=== PATIENT | male | born 1965 | race Native Hawaiian/Other Pacific Islander ===

== ENCOUNTER 2020-02-17 16:17 | Emergency (ER) | payer OTHER ==
[2020-02-17] MEDS ORDERED: ACETAMINOPHEN 325 MG TABLET PO STA (17:10)
--- NOTE | 2020-02-17 17:11 | ED Physician Documentation ---
History of Present Illness - Stated complaint Stated Complaint: Chest pain - Chief complaint Chief Complaint: Abd Pain - History obtained from History obtained from: Patient, Family - History of Present Illness Timing: How many days ago (2) Pain level max: 5 Pain level now: 4 - Additonal information Additional information: 54-year-old male presents the emergency department with a dry cough for the past 2 days. States that he has right-sided chest pain with coughing. Worse with movement, worse with coughing. Better with rest. Has not taken anything for pain. No nausea. No vomiting. No diarrhea. No fevers. History of a right- sided CVA. Review of Systems Ten Systems: 10 systems reviewed and negative Constitutional: denies: Fever, Chills Ears: denies: Ear pain Cardiac: denies: Palpitations Respiratory: denies: Dyspnea, Hemoptysis, Wheezing GI: denies: Abdominal Pain, Nausea, Vomiting, Diarrhea, Hematemesis, Bloody / black stool : denies: Dysuria, Frequency, Hesitancy Skin: denies: Rash Musculoskeletal: denies: Neck pain, Back pain Neurologic: denies: Headache PD PAST MEDICAL HISTORY - Past Medical History Past Medical History: Yes Cardiovascular: Hypertension Neuro: CVA - Allergies Allergies/Adverse Reactions: Allergies Allergy/AdvReac Type Severity Reaction Status Date / Time No Known Drug Allergies Allergy Verified 02/17/20 16:27 - Living Situation Living Situation: reports: With family Living Arrangement: reports: At home - Social History Does the pt have substance abuse?: No - Family History Family history: reports: Non contributory PD ED PE NORMAL - Vitals Vital signs reviewed: Yes - General General: Alert and oriented X 3, No acute distress, Well developed/nourished - HEENT HEENT: PERRL, Moist mucous membranes - Neck Neck: Supple, no meningeal sign - Cardiac Cardiac: RRR, Strong equal pulses - Respiratory Respiratory: No respiratory distress, Clear bilaterally - Abdomen Abdomen: Normal bowel sounds, Soft, Non tender, Non distended - Back Back: No CVA TTP, No spinal TTP - Derm Derm: Warm and dry - Extremities Extremities: No edema, No calf tenderness / cord - Neuro Neuro: Alert and oriented X 3 - Psych Psych: Normal mood, Normal affect - Free text exam Free text exam: Tender to palpation right anterior chest wall that reproduces his pain Results - Vitals Vitals: Vital Signs - 24 hr 02/17/20 02/17/20 02/17/20 16:27 18:31 20:00 Temperature 36.8 C Heart Rate 98 99 99 Respiratory 16 27 H 23 Rate Blood Pressure 165/98 H 166/105 H 162/108 H O2 Saturation 98 98 99 02/17/20 21:30 Temperature Heart Rate 102 H Respiratory 18 Rate Blood Pressure 139/84 H O2 Saturation 100 Oxygen O2 Source Room air - EKG (time done) 1637 Rate: Rate (enter#) (96) Rhythm: NSR [place]: Normal Intervals: Normal ME QRS: Normal Ischemia: Normal ST segments - Labs Labs: Laboratory Tests 02/17/20 02/17/20 02/17/20 18:38 18:38 18:38 WBC 18.9 H RBC 5.22 Hgb 16.1 Hct 45.9 MCV 87.9 MCH 30.8 MCHC 35.1 RDW 12.0 Plt Count 285 MPV 9.5 Neut # (Auto) Not Reportable Lymph # (Auto) Not Reportable Dundy # (Auto) Not Reportable Eos # (Auto) Not Reportable Baso # (Auto) Not Reportable Absolute Nucleated RBC Not Reportable Total Counted 100 Band Neuts % (Manual) 0 Abnorm Lymph % (Manual) 0 Nucleated RBC % Not Reportable Neutrophils # (Manual) 14.6 H Lymphocytes # (Manual) 2.3 Monocytes # (Manual) 2.1 H Eosinophils # (Manual) 0.0 Basophils # (Manual) 0.0 Differential Comment MANUAL DIFFERENTIAL Platelet Estimate NORMAL (130-450,000) Platelet Morphology RARE GIANT PLATELETS RBC Morph Micro Appear NORMAL APPEARANCE Sodium 134 L Potassium 3.4 L Chloride 102 Carbon Dioxide 21 Anion Gap 11.0 BUN 17 Creatinine 0.6 Estimated GFR (MDRD) 140 Glucose 119 H Calcium 8.9 Total Bilirubin 5.4 H AST 313 H ALT 473 H Alkaline Phosphatase 152 H Troponin I High Sens 10.0 Total Protein 8.2 Albumin 4.2 Globulin 4.0 Albumin/Globulin Ratio 1.1 Lipase 39 Urine Color Urine Clarity Urine pH Ur Specific Lyndon Urine Protein Urine Glucose (UA) Urine Ketones Urine Occult Blood Urine Nitrite Urine Bilirubin Urine Urobilinogen Ur Leukocyte Esterase Urine RBC Urine WBC Ur Squamous Epith Cells Urine Crystals Amorphous Sediment Urine Bacteria Urine Yeast Ur Microscopic Review Urine Culture Comments 02/17/20 19:15 WBC RBC Hgb Hct MCV MCH MCHC RDW Plt Count MPV Neut # (Auto) Lymph # (Auto) Dundy # (Auto) Eos # (Auto) Baso # (Auto) Absolute Nucleated RBC Total Counted Band Neuts % (Manual) Abnorm Lymph % (Manual) Nucleated RBC % Neutrophils # (Manual) Lymphocytes # (Manual) Monocytes # (Manual) Eosinophils # (Manual) Basophils # (Manual) Differential Comment Platelet Estimate Platelet Morphology RBC Morph Micro Appear Sodium Potassium Chloride Carbon Dioxide Anion Gap BUN Creatinine Estimated GFR (MDRD) Glucose Calcium Total Bilirubin AST ALT Alkaline Phosphatase Troponin I High Sens Total Protein Albumin Globulin Albumin/Globulin Ratio Lipase Urine Color DARK YELLOW Urine Clarity HAZY Urine pH 6.0 Ur Specific Lyndon >=1.030 H Urine Protein >=300 H Urine Glucose (UA) NEGATIVE Urine Ketones NEGATIVE Urine Occult Blood LARGE H Urine Nitrite NEGATIVE Urine Bilirubin MODERATE H Urine Urobilinogen 1 (NORMAL) Ur Leukocyte Esterase NEGATIVE Urine RBC 11-25 H Urine WBC 0-3 Ur Squamous Epith Cells NONE SEEN Urine Crystals 0-2 Calcium Oxalate Amorphous Sediment Few Urine Bacteria Moderate H Urine Yeast PRESENT Ur Microscopic Review INDICATED Urine Culture Comments INDICATED - Rads (name of study) RUQ US Radiology: Prelim report reviewed, EMP read contemporaneously, See rad report (1. Cholelithiasis with gallstone and echogenic material with septation. No gallbladder wall thickening, pericholecystic fluid collection or sonographic Gomez sign. 2. Intrahepatic Limited examination with common bile duct measuring 8 mm. Please correlate with serum bilirubin for biliary obstruction) CT abd/pelvis Radiology: Prelim report reviewed, EMP read contemporaneously, See rad report PD MEDICAL DECISION MAKING - ED course Complexity details: reviewed results, re-evaluated patient, considered differential, d/w patient, d/w family ED course: 54-year-old male with right upper quadrant pain, appears to have choledocholithiasis likely on ultrasound. No stone is visible, but there is common bile duct dilatation to 8 mm along with elevation of his bilirubin, ALT, AST and alk phos. CT scan was also ordered. Read is not back at this time. Patient was given Zosyn. Patient will need transfer for GI. [facility] contacted. [facility]. This document was made in part using voice recognition software. While efforts are made to proofread this document, sound alike and grammatical errors may occur. Departure - Departure Disposition: 02 Transfer Acute Care Hosp Clinical Impression: Choledocholithiasis Condition: Stable
--- NOTE | 2020-02-17 17:18 | XRAY Report ---
PROCEDURE: Chest 1 View X-Ray INDICATIONS: Chest pain TECHNIQUE: One view of the chest was acquired. COMPARISON: None. FINDINGS: Surgical changes and devices: None. Lungs and pleura: No pleural effusions or pneumothorax. Lungs are clear. Mediastinum: Mediastinal contours appear normal. Heart size is normal. Bones and chest wall: No suspicious bony lesions. Overlying soft tissues appear unremarkable. IMPRESSION: Mild interstitial prominence. No acute cardiopulmonary disease. Reviewed by: Brooke Pineda MD on 02/17/2020 5:17 PM PDT Approved by: Brooke Pineda MD on 02/17/2020 5:17 PM PDT Station ID: [id number]
[2020-02-17 18:44] LABS: BASOPHILS % (AUTO) 0.3 %; EOSINOPHILS % (AUTO) 0.1 %; HGB - HEMOGLOBIN 16.1 g/dL (14.0-18.0); LYMPHOCYTES % (AUTO) 7.7 %; MEAN CORPUSCULAR HEMOGLOBIN 30.8 pg (27.0-31.0); MEAN CORPUSCULAR HGB CONC 35.1 g/dL (32.0-36.0); MEAN CORPUSCULAR VOLUME 87.9 fL (80.0-94.0); MEAN PLATELET VOLUME 9.5 fL (7.4-11.4); MONOCYTES % (AUTO) 9.6 %; NEUTROPHILS % (AUTO) 81.6 %; PLT - PLATELET COUNT 285 10^3/uL (130-450); RED BLOOD COUNT 5.22 10^6/uL (4.70-6.10); WHITE BLOOD COUNT 18.9 x10^3/uL (4.8-10.8)
[2020-02-17 18:47] LABS: ABNORMAL LYMPHS % (MANUAL) 0 %; BAND NEUTROPHILS % (MANUAL) 0 %
[2020-02-17 19:07] LABS: ALBUMIN 4.2 g/dL (3.2-5.5); ALBUMIN/GLOBULIN RATIO 1.1 (1.0-2.2); BILIRUBIN,TOTAL 5.4 mg/dL (0.2-1.0); CALCIUM 8.9 mg/dL (8.5-10.3); CREATININE 0.6 mg/dL (0.6-1.2); TOTAL PROTEIN 8.2 g/dL (6.7-8.2)
[2020-02-17 19:27] LABS: GLUCOSE, URINE (UA) NEGATIVE (NEGATIVE); KETONES,URINE (UA) NEGATIVE (NEGATIVE); LEUKOCYTE ESTERASE, URINE NEGATIVE (NEGATIVE); NITRITE,URINE NEGATIVE (NEGATIVE); OCCULT BLOOD,URINE LARGE (NEGATIVE); PROTEIN,URINE >=300 mg/dL (NEGATIVE); UROBILINOGEN,URINE 1 (NORMAL) E.U./dL (NORMAL)
[2020-02-17 19:29] LABS: DIFFERENTIAL COMMENT MANUAL DIFFERENTIAL; LYMPHOCYTES # (MANUAL) 2.3 10^3/uL (1.5-3.5); LYMPHOCYTES % (MANUAL) 12 %; MONOCYTES # (MANUAL) 2.1 10^3/uL (0.0-1.0); PLATELET ESTIMATE, MANUAL NORMAL (130-450,000) (NORMAL); PLATELET MORPHOLOGY RARE GIANT PLATELETS (NORMAL); RBC MORPHOLOGY (MULTIPLE) NORMAL APPEARANCE (NORMAL)
[2020-02-17 19:31] LABS: BILIRUBIN,URINE MODERATE (NEGATIVE); CLARITY,URINE HAZY (CLEAR); ICTOTEST,URINE POSITIVE
[2020-02-17 19:46] LABS: AMORPHOUS SEDIMENT,UR Few /LPF; BACTERIA,URINE Moderate /HPF (None Seen); CRYSTALS,URINE 0-2 Calcium Oxalate /LPF; SQUAMOUS EPITHELIAL CELL,UR NONE SEEN (<= Few); YEAST,URINE PRESENT
[2020-02-17] MEDS ORDERED: MAG HYDROX/AL HYDROX/SIMETH 30 ML UDC PO STA (20:20)
[2020-02-17] MEDS ORDERED: IOVERSOL 320 100 ML VIAL IVP ONE ×2 (20:44→21:31)
--- NOTE | 2020-02-17 21:11 | Ultrasound Report ---
PROCEDURE: Abdomen Limited INDICATIONS: abd pain, RUQ, elevated LFT's TECHNIQUE: Real-time focused scanning was performed of the abdomen, with image documentation. COMPARISON: CT abdomen and pelvis with contrast, 02/17/2020. FINDINGS: There is normal and sludge, as well as septated material in gallbladder. No common or thic kening, pericholecystic fluid collection or sonographic Gomez sign. Liver demonstrates normal size a nd increased echogenicity. Common bile duct is prominent measuring 8 mm. Right kidney is normal witho ut hydronephrosis. IMPRESSION: 1. Cholelithiasis with gallstone and echogenic material with septation. No gallbladder wall thickenin g, pericholecystic fluid collection or sonographic Gomez sign. 2. Intrahepatic Limited examination with common bile duct measuring 8 mm. Please correlate with serum bilirubin for biliary obstruction. Reviewed by: Brooke Pineda MD on 02/17/2020 9:09 PM PDT Approved by: Brooke Pineda MD on 02/17/2020 9:09 PM PDT Station ID: [id number]
[2020-02-17] MEDS ORDERED: PIPERACILLIN/TAZOBACTAM 3.375 GM in SODIUM CHLORIDE 0.9% MINIBAG 100 ML IV STA (22:00)
--- NOTE | 2020-02-17 22:06 | CT Report ---
PROCEDURE: Abdomen/Pelvis W INDICATIONS: RUQ abd pain CONTRAST: IV CONTRAST: Optiray 320 ml: 100 PO CONTRAST: *NO PO CONTRAST TECHNIQUE: After the administration of oral and intravenous contrast, 5 mm thick sections acquired from the diap hragms to the symphysis. 5 mm thick coronal and sagittal reformats were acquired. For radiation dos e reduction, the following was used: automated exposure control, adjustment of mA and/or kV accordin g to patient size. COMPARISON: Ultrasound abdomen, 02/17/2020. FINDINGS: Image quality: Excellent. ABDOMEN: Lung bases: Lung bases are clear. Heart size is normal. Small hiatal hernia. Solid organs: Liver and spleen are normal in size and enhancement. Gallbladder is distended and con tains gallstones Biliary system is moderately dilated. Common bile duct measures 12 mm. There may b e small intraductal stones. Pancreas enhances normally. No adrenal nodules. Kidneys demonstrate nor mal size and enhancement, without hydronephrosis. Peritoneum and bowel: Bowel loops demonstrate normal wall thickness and caliber. No free fluid or a ir. Nodes and vessels: No retroperitoneal or mesenteric adenopathy by size criteria. Aorta and inferior vena cava are normal in size. Miscellaneous: No ventral hernias. PELVIS: Genitourinary: Bladder wall thickness is normal. Miscellaneous: No inguinal hernias or adenopathy. Bones: No suspicious bony lesions. No vertebral body compression fractures. IMPRESSION: 1. Distended gallbladder containing gallstones and sludge. No gallbladder wall thickening or perichol ecystic fluid collection. 2. There is intrahepatic biliary dilation. Common bile duct measures 12 mm. There may be intraductal stones in the common bile duct. The findings suggest biliary obstruction. Please correlate with serum bilirubin. Reviewed by: Brooke Pineda MD on 02/17/2020 10:04 PM PDT Approved by: Brooke Pineda MD on 02/17/2020 10:04 PM PDT Station ID: [id number]
[2020-02-18 01:18] VITALS: BP 155/99
== END 2020-02-18 01:23 | disposition short-term general hospital (02) ==
LOC: ED 16:17
DX: K80.50 Calculus of bile duct without cholangitis or cholecystitis without obstruction (principal)
CPT/HCPCS: 36415; 71045; 74177; 76705; 80053; 81001; 83690; 84484; 85025; 87086; 93005; 96365; 99285; A9270; Q9967; 81003

== ENCOUNTER 2020-02-18 01:34 | Outpatient (CLI) | payer OTHER | END 2020-02-18 01:35 | disposition short-term general hospital (02) | LOC: EMS 01:34 | PROVIDERS: ATTEND Surgery | DX: R10.11 Right upper quadrant pain (principal); R07.9 Chest pain, unspecified | CPT/HCPCS: A0425; A0428 ==